=== PATIENT | female | born 1945 | race African-American/Black ===

== ENCOUNTER 2022-10-28 14:51 | Emergency (ER) | payer OTHER ==
[~2022-10-28] VITALS: Ht 177.8 cm; Wt 77.0 kg
[2022-10-28] MEDS ORDERED: ONDANSETRON HCL 4MG/2ML INJ IV STA (15:11)
[2022-10-28] MEDS ORDERED: SODIUM CHLORIDE 0.9% 1,000 ML IV ONE (15:15)
[2022-10-28 15:58] LABS: BASOPHILS % 0.6 % (0.0-2.0); EOSINOPHILS % 0.2 % (0.0-5.0); LYMPHOCYTES % 18.6 % (20.0-50.0); MEAN CORPUSCULAR HEMOGLOBIN 19.3 pg (28.0-32.0); MEAN CORPUSCULAR VOLUME 68.7 fL (81.0-99.0); MEAN PLATELET VOLUME 7.7 fl (7.4-10.4); MONOCYTES % 6.8 % (2.0-8.0); NEUTROPHILS % 73.8 % (40.0-76.0); PLATELET 373 x1000/uL (130-400); RED BLOOD CELL COUNT 2.57 mill/uL (4.2-5.4); RED CELL DISTRIBUTION WIDTH 20.8 % (11.6-14.6)
[2022-10-28 16:06] LABS: CHLORIDE 111 mEq/L (98-107)
[2022-10-28 16:19] LABS: HEMATOCRIT. 17.7 % (36.0-48.0)
[2022-10-28] MEDS ORDERED: POTASSIUM CHLORIDE INJ 40 MEQ in DEXT 5% WATER 250 ML IV ONE (16:45)
[2022-10-28] MEDS ORDERED: POTASSIUM CHLORIDE 20MEQ TABLET SR PO ONE (16:45)
[2022-10-28 18:09] LABS: PLATELET ESTIMATE NORMAL
[2022-10-28 21:59] VITALS: BP 138/61
== END 2022-10-29 00:58 | disposition short-term general hospital (02) ==
LOC: ER 15:21
DX: R10.33 Periumbilical pain (principal); D64.9 Anemia, unspecified; R11.10 Vomiting, unspecified; I10 Essential (primary) hypertension; Z20.822 Contact with and (suspected) exposure to COVID-19
CPT/HCPCS: 36415; 74176; 80053; 83690; 85025; 86850; 86900; 86901; 86920; 87426; 93005; 96361; 96365; 96366; 96375; 99291; C9803; J2405; J3480; J7030; J7060; 36430; P9016